=== PATIENT | male | born 1975 | race Caucasian/White ===

== ENCOUNTER 2022-07-27 07:09 | Day surgery (SDC) | payer OTHER ==
[~2022-07-27] VITALS: Ht 175.3 cm; Wt 100.0 kg
[2022-07-27 07:00] VITALS: BP 173/108
[2022-07-27 07:55] LABS: HEMATOCRIT 38.9 % (39.0-50.0); HEMOGLOBIN 13.6 g/dl (14.0-18.0); IMMATURE GRANULOCYTES 0.2 % (0.0-5.0); MEAN CELL VOLUME 87.6 fL CALC (80.0-100.0); MEAN CORPUSCULAR HGB 30.6 pG CALC (26.0-32.0); NEUT# 5.77 thou/uL (1.82-7.42); RED BLOOD COUNT 4.44 mill/uL (4.70-6.10); RED CELL DISTRI WIDTH 12.1 % (11.5-15.5)
[2022-07-27 08:29] LABS: ALBUMIN 5.2 g/dL (3.2-5.0); ALKALINE PHOSPHATASE 64 u/l (38-126); ANION GAP 18 (6-22 (CALC)); BILIRUBIN, TOTAL 0.6 mg/dL (0.0-1.4); BUN 12 mg/dL (9-20); BUN/CREATININE RATIO 18 (12-20 (CALC)); CARBON DIOXIDE 23 mmol/l (22-30); CHLORIDE 104 mmol/l (95-108); CREATININE 0.7 mg/dL (0.7-1.3); GFR FOR AFR.AMER. > 60 ML/MIN (>=60 (CALC)); GFR OTHER RACES > 60 ML/MIN (>=60 (CALC)); POTASSIUM 4.2 mmol/l (3.5-5.1); SGOT/AST 26 u/l (17-59); SODIUM 141 mmol/l (137-146); TOTAL PROTEIN 8.2 g/dL (6.3-8.2)
[2022-07-27] MEDS ORDERED: METFORMIN500 M2 PO (10:03)
[2022-07-27] MEDS ORDERED: SEROQUEL100 MG PO (10:04)
[2022-07-27] MEDS ORDERED: NALTREXONE50 MG PO (14:34)
[2022-07-27] MEDS ORDERED: CLONIDINE0.1 MG PO (14:35)
[2022-07-27] MEDS ORDERED: KLONOPIN2 MG PO (14:36)
[2022-07-27 19:00] VITALS: BP 152/93
[2022-07-27 22:45] VITALS: BP 177/95
[2022-07-28 03:50] VITALS: BP 157/87
[2022-07-28 05:48] LABS: HEMATOCRIT 38.6 % (39.0-50.0); IMMATURE GRANULOCYTES 0.2 % (0.0-5.0); MEAN CORPUSCULAR HGB 31.2 pG CALC (26.0-32.0); MEAN CORPUSCULAR HGB CONC 36.3 g/dL CAL (32.0-36.0); NEUT# 10.94 thou/uL (1.82-7.42); RED BLOOD COUNT 4.49 mill/uL (4.70-6.10)
[2022-07-28 06:03] LABS: ALBUMIN 4.6 g/dL (3.2-5.0); ALKALINE PHOSPHATASE 56 u/l (38-126); BILIRUBIN, TOTAL 0.6 mg/dL (0.0-1.4); BUN 14 mg/dL (9-20); BUN/CREATININE RATIO 17 (12-20 (CALC)); CARBON DIOXIDE 24 mmol/l (22-30); CHLORIDE 105 mmol/l (95-108); CREATININE 0.8 mg/dL (0.7-1.3); GFR FOR AFR.AMER. > 60 ML/MIN (>=60 (CALC)); GFR OTHER RACES > 60 ML/MIN (>=60 (CALC)); MAGNESIUM 2.4 mg/dL (1.6-2.3); SODIUM 142 mmol/l (137-146); TOTAL PROTEIN 7.6 g/dL (6.3-8.2)
[2022-07-28 06:04] LABS: SGOT/AST 24 u/l (17-59)
[2022-07-28 06:05] LABS: ANION GAP 17 (6-22 (CALC)); POTASSIUM 3.8 mmol/l (3.5-5.1)
[2022-07-28 09:00] VITALS: BP 165/95
[2022-07-28 09:53] VITALS: BP 156/90
== END 2022-07-28 17:13 | disposition home or self-care (01) | DRG 897 ==
LOC: ANR 07:09 → MS2 07:09 → ANR 09:00 → EDSEX 09:00 → ANR 07-28 17:13
PROVIDERS: ATTEND Anesthesiology
DX: F11.20 Opioid dependence, uncomplicated (principal)
CPT/HCPCS: J2354